=== PATIENT | male | born 1995 | race African-American/Black ===

== ENCOUNTER 2022-04-18 09:18 | Emergency (ER) | payer OTHER ==
[~2022-04-18] VITALS: Ht 182.9 cm; Wt 72.7 kg
[2022-04-18 14:22] VITALS: BP 132/78
== END 2022-04-18 14:23 | disposition home or self-care (01) ==
LOC: EMS 09:18
DX: M25.562 Pain in left knee (principal); F17.210 Nicotine dependence, cigarettes, uncomplicated; Z98.890 Other specified postprocedural states
CPT/HCPCS: 99283; Z7502